=== PATIENT | female | born 1950 | race Caucasian/White ===

== ENCOUNTER 2020-05-28 15:46 | Outpatient (CLI) | payer OTHER | END 2020-05-28 16:00 | disposition home or self-care (01) | LOC: RAD 15:46 | PROVIDERS: ATTEND Internal Medicine Rheumatology | DX: M17.0 Bilateral primary osteoarthritis of knee (principal) ==

== ENCOUNTER 2020-06-09 13:25 | Outpatient (CLI) | payer OTHER | END 2020-06-09 13:30 | disposition HB | LOC: SONOGRAMA 13:25 | DX: E04.1 Nontoxic single thyroid nodule (principal); E03.8 Other specified hypothyroidism ==

== ENCOUNTER 2021-01-06 16:03 | Outpatient (CLI) | payer OTHER | END 2021-01-06 16:12 | disposition home or self-care (01) | LOC: RAD 16:03 | PROVIDERS: ATTEND Specialist | DX: J45.998 Other asthma (principal) ==

== ENCOUNTER 2021-01-14 14:35 | Outpatient (CLI) | payer OTHER | END 2021-01-14 15:00 | disposition home or self-care (01) | LOC: EKG 14:35 | PROVIDERS: ATTEND Orthopaedic Surgery | DX: R94.31 Abnormal electrocardiogram [ECG] [EKG] (principal); M17.12 Unilateral primary osteoarthritis, left knee ==

== ENCOUNTER 2021-01-20 07:30 | Inpatient (IN) | payer OTHER ==
[~2021-01-20] VITALS: Ht 167.6 cm; Wt 85.3 kg
[2021-01-27] MEDS ORDERED: CELECOXIB200 MG (09:21)
[2021-01-27] MEDS ORDERED: GABAPENTIN100 M2 (09:21)
[2021-01-27] MEDS ORDERED: LEVOTHYROXINE25 MC1 (09:22)
[2021-01-27] MEDS ORDERED: MICRO-K 1010 MEQ (09:22)
[2021-01-27] MEDS ORDERED: FAMOTIDINE20 MG (09:22)
[2021-01-27] MEDS ORDERED: OMEPRAZOLE20 MG (09:22)
[2021-01-27] MEDS ORDERED: NABUMETONE750 MG (09:22)
[2021-01-27] MEDS ORDERED: ZOLPIDEM TARTRA10 MG (09:22)
[2021-01-27] MEDS ORDERED: ROSUVASTATIN CA20 MG (09:22)
[2021-01-27] MEDS ORDERED: AMPHETAMINE SAL20 MG (09:23)
[2021-01-28] MEDS ORDERED: DUI500 PO (17:15)
[2021-01-28] MEDS ORDERED: PERCOCET 5-3251 EACH PO (17:15)
[2021-01-28] MEDS ORDERED: ELIQUIS2.5 MG PO (17:15)
== END 2021-01-28 20:47 | DRG 470 ==
LOC: O/R 01-26 07:00 → SURH 01-26 07:00
PROVIDERS: ADMIT Orthopaedic Surgery; ATTEND Orthopaedic Surgery
PROC: 0SND0ZZ Release Left Knee Joint, Open Approach (ICD-10-PCS; 2021-01-26)
PROC: 3E0F7SF Introduction of Other Gas into Respiratory Tract, Via Natural or Artificial Opening (ICD-10-PCS; 2021-01-26)
PROC: 0SRD0J9 Replacement of Left Knee Joint with Synthetic Substitute, Cemented, Open Approach (ICD-10-PCS; principal; 2021-01-26 10:15)
DX: M17.12 Unilateral primary osteoarthritis, left knee (principal); D62 Acute posthemorrhagic anemia; M81.0 Age-related osteoporosis without current pathological fracture

== ENCOUNTER → 2021-03-10 | Outpatient (CLI) | payer OTHER ==
[~2021-03-10] MED LIST: AMPHETAMINE SAL20 MG; CELECOXIB200 MG; DUI500 PO; ELIQUIS2.5 MG PO; FAMOTIDINE20 MG; GABAPENTIN100 M2; LEVOTHYROXINE25 MC1; MICRO-K 1010 MEQ; NABUMETONE750 MG; OMEPRAZOLE20 MG; PERCOCET 5-3251 EACH PO; ROSUVASTATIN CA20 MG; ZOLPIDEM TARTRA10 MG
== END | disposition home or self-care (01) ==
LOC: MAMO-SONO 07:51
PROVIDERS: ATTEND Specialist
DX: R92.1 Mammographic calcification found on diagnostic imaging of breast (principal); Z12.31 Encounter for screening mammogram for malignant neoplasm of breast

== ENCOUNTER → 2021-03-17 | Outpatient (CLI) | payer OTHER | END | disposition home or self-care (01) | LOC: RAD 10:21 | PROVIDERS: ATTEND Internal Medicine Rheumatology | DX: M51.36 Other intervertebral disc degeneration, lumbar region (principal); M25.572 Pain in left ankle and joints of left foot; M16.0 Bilateral primary osteoarthritis of hip; M25.571 Pain in right ankle and joints of right foot ==

== ENCOUNTER 2022-06-03 07:11 | Outpatient (CLI) | payer OTHER | END 2022-06-03 07:13 | disposition home or self-care (01) | LOC: NUCLEAR 07:11 | PROVIDERS: ATTEND Internal Medicine | DX: I11.9 Hypertensive heart disease without heart failure (principal); I25.10 Atherosclerotic heart disease of native coronary artery without angina pectoris; E78.2 Mixed hyperlipidemia; E11.9 Type 2 diabetes mellitus without complications | CPT/HCPCS: 78452; 93017; A9500 ==

== ENCOUNTER 2022-12-23 11:00 | Outpatient (CLI) | payer OTHER | END 2022-12-23 11:07 | disposition home or self-care (01) | LOC: TOM 11:00 | PROVIDERS: ATTEND Internal Medicine Pulmonary Disease | DX: R06.02 Shortness of breath (principal); Z86.16 Personal history of COVID-19; G47.33 Obstructive sleep apnea (adult) (pediatric); E66.01 Morbid (severe) obesity due to excess calories; Z87.891 Personal history of nicotine dependence ==

== ENCOUNTER 2023-07-10 13:17 | Outpatient (CLI) | payer OTHER | END 2023-07-10 13:26 | disposition home or self-care (01) | LOC: RAD 13:17 | PROVIDERS: ATTEND Internal Medicine Rheumatology | DX: M17.0 Bilateral primary osteoarthritis of knee (principal); M19.049 Primary osteoarthritis, unspecified hand ==

== ENCOUNTER 2024-01-08 10:58 | Outpatient (CLI) | payer OTHER | END 2024-01-08 11:06 | disposition home or self-care (01) | LOC: RAD 10:58 | PROVIDERS: ATTEND Internal Medicine Pulmonary Disease | DX: R06.02 Shortness of breath (principal); Z87.891 Personal history of nicotine dependence; R91.8 Other nonspecific abnormal finding of lung field ==